=== PATIENT | male | born 1980 | race Caucasian/White ===

== ENCOUNTER 2017-10-06 16:17 | Emergency (ER) | payer OTHER ==
[2017-10-06] MEDS ORDERED: Doxycycline 100 MG Cap PO ONE (17:04)
--- NOTE | 2017-10-06 17:42 | EDM.PDOC ---
ED HPI GENERAL MEDICAL PROBLEM - General Chief Complaint: Lower Extremity Injury/Pain Stated Complaint: R KNEE PAIN Time Seen by Provider: 10/06/17 16:45 Source of Information: Reports: Patient History Limitations: Reports: No Limitations - History of Present Illness INITIAL COMMENTS - FREE TEXT/NARRATIVE: 36-year-old male presents for evaluation and treatment of right knee pain. Patient reports a couple weeks ago he [place] He was wearing [place]. States that he developed erythema and blistering to the knee afterwards. Since then he has had pain, swelling over the knee. he has been able to express pus from the area. He reports pain to knee; he did walk here from a local hotel. He states that he has been feeling feverish, chilled but he has not taken his temperature. Reports nausea but no vomiting. No previous trauma to the knee. Patient reports that his girlfriend recently was diagnosed with MRSA. Patient is not a diabetic. Location: Reports: Lower Extremity, Right Right Knee Pain Score (Numeric/FACES): 6 - Related Data Allergies Allergy/AdvReac Type Severity Reaction Status Date / Time No Known Allergies Allergy Verified 10/06/17 16:22 Home Meds: Home Meds Doxycycline [Vibramycin] 100 mg IV Q12H #19 vial 10/06/17 [Rx] Past Medical History Cardiovascular History: Reports: Hypertension Social & Family History - Tobacco Use Smoking Status *Q: Former Smoker Years of Tobacco use: 10 Packs/Tins Daily: 0.5 Used Tobacco, but Quit: No Month Tobacco Last Used: september Review of Systems - Review of Systems Review Of Systems: See Below Constitutional: Reports: Chills, Fever, Other (reports malaise) GI/Abdominal: Reports: Nausea. Denies: Vomiting Musculoskeletal: Reports: Joint Pain (right knee), Joint Swelling (right knee) Skin: Reports: Wound (right knee) Neurological: Reports: Difficulty Walking. Denies: Numbness, Tingling ED EXAM, GENERAL - Physical Exam Exam: See Below Exam Limited By: No Limitations General Appearance: Alert, WD/WN, No Apparent Distress Respiratory/Chest: No Respiratory Distress Cardiovascular: Normal Peripheral Pulses, Regular Rate, Rhythm Peripheral Pulses: 3+: Posterior Tibial (L), Posterior Tibial (R), Dorsalis Pedis (L), Dorsalis Pedis (R) Extremities: Other (Right knee joint effusion) Neurological: Alert, Oriented, Normal Cognition Psychiatric: Normal Affect, Normal Mood Skin Exam: Warm, Dry, Erythema (Right knee has 2 areas of erythema one approximately 3 cm in diameter, the second about 1/2 cm in diameter. Purulent material from these areas, right lower leg has slight erythema compared to the left) Course - Vital Signs Last Recorded V/S: Last Vital Signs Temp 36.3 C 10/06/17 16:22 Pulse 84 10/06/17 16:22 Resp 17 10/06/17 16:22 BP 114/90 10/06/17 16:22 Pulse Ox 100 10/06/17 16:22 - Orders/Labs/Meds Labs: Laboratory Tests 10/06/17 10/06/17 Range/Units 17:15 17:15 WBC 8.33 (4.23-9.07) K/mm3 RBC 4.88 (4.63-6.08) M/mm3 Hgb 13.5 L (13.7-17.5) gm/L Hct 40.2 (40.1-51.0) % MCV 82.4 (79.0-92.2) fl MCH 27.7 (25.7-32.2) pg MCHC 33.6 (32.2-35.5) g/dl RDW Std Deviation 41.3 (35.1-43.9) fL Plt Count 206 (163-337) K/mm3 MPV 10.5 (9.4-12.3) fl Neutrophils % (Manual) 79 H (40-60) % Band Neutrophils % 0 (0-10) % Lymphocytes % (Manual) 17 L (20-40) % Atypical Lymphs % 0 % Monocytes % (Manual) 2 (2-10) % Eosinophils % (Manual) 2 (0.8-7.0) % Basophils % (Manual) 0 L (0.2-1.2) Platelet Estimate Adequate Plt Morphology Comment Normal RBC Morph Comment Normal Sodium 141 (136-145) mEq/L Potassium 3.5 (3.5-5.1) mEq/L Chloride 106 (98-107) mEq/L Carbon Dioxide 27 (21-32) mEq/L Anion Gap 11.5 (5-15) BUN 15 (7-18) mg/dL Creatinine 0.9 (0.7-1.3) mg/dL Est Cr Clr Drug Dosing 130.66 mL/min Estimated GFR (MDRD) > 60 (>60) mL/min BUN/Creatinine Ratio 16.7 (14-18) Glucose 84 (74-106) mg/dL Calcium 8.6 (8.5-10.1) mg/dL C-Reactive Protein 3.8 H* (<1.0) mg/dL Meds: Medications Discontinued Medications Generic Name Dose Route Start Last Admin Trade Name Tyrese PRN Reason Stop Dose Admin Doxycycline Hyclate 200 mg 10/06/17 17:04 10/06/17 17:17 Vibramycin PO 10/06/17 17:05 200 mg ONETIME ONE Administration - Re-Assessments/Exams Free Text/Narrative Re-Assessment/Exam: 10/06/17 17:50 I reviewed the labs with the patient. We will start him on doxycycline for cellulitis. I informed him once the cellulitis cleared up and then he can have the joint effusion drained. until that time, with overlying cellulitis I ma unwilling to do this here in the ER. Discharge instructions as documented. Departure - Departure Time of Disposition: 17:51 Disposition: Home, Self-Care 01 Clinical Impression: Cellulitis, Knee effusion, right - Discharge Information Prescriptions: Doxycycline [Vibramycin] 100 mg IV Q12H #19 vial Instructions: Cellulitis, Adult Referrals: PCP,None [Primary Care Provider] - Betito Clark [Physician] - Forms: ED Department Discharge Additional Instructions: doxycycline 100mg PO bid x 10 days, start your Rx tomorrow your first dose was given in the ER tonight [id number] Tylenol or Motrin as needed for pain relief. Recommend using an DAHLIA wrap to the knee to help resolve the effusion. Follow-up with family med in 1-2 weeks. Once the overlying cellulites has resolved, you may be able to drain the knee. Recommend Dr. Anthony or Dr. Smith at the [facility]. Call [phone] to schedule with one of these providers. Please return to the ER should your symptoms change or worsen.
== END 2017-10-06 18:00 | disposition home or self-care (01) ==
LOC: JD.ED 16:17
DX: L03.115 Cellulitis of right lower limb (principal); I10 Essential (primary) hypertension; Z87.891 Personal history of nicotine dependence; B95.62 Methicillin resistant Staphylococcus aureus infection as the cause of diseases classified elsewhere
CPT/HCPCS: 36415; 80048; 85025; 86140; 87070; 87077; 87186; 99283; A9270